=== PATIENT | female | born 1990 | race Caucasian/White ===

== ENCOUNTER 2023-07-11 06:50 | Day surgery (SDC) | payer MEDICAID ==
[~2023-07-11 06:50] MED LIST: Sodium Chloride 0.9% 10 ML Syringe FLUSH PRN
[2023-07-11] MEDS: Lactated Ringers 1,000 ML IV SCH (07:15)
[2023-07-11 07:17] LABS: BASOPHILS PERCENT AUTO 0.2 % (0.0-1.0); EOSINOPHILS ABSOLUTE AUTO 0.1 K/mm3 (0.0-0.4); EOSINOPHILS PERCENT AUTO 1.7 % (0.0-6.0); HEMOGLOBIN 12.8 gm/dl (12.0-16.0); IMMATURE GRAN ABSOLUTE AUTO 0.04 K/mm3 (0.00-0.05); IMMATURE GRAN PERCENT AUTO 0.6 % (0.0-0.4); LYMPHOCYTES PERCENT AUTO 29.8 % (24.0-44.0); MEAN CORPUSCULAR HGB CONC 34.6 g/dl (32.0-36.0); MEAN CORPUSCULAR VOLUME 89.6 fl (83.0-99.0); MEAN PLATELET VOLUME 11.1 fl (9.4-12.3); MONOCYTES ABSOLUTE AUTO 0.3 K/mm3 (0.0-0.8); MONOCYTES PERCENT AUTO 4.9 % (0.0-8.0); NEUTROPHILS ABSOLUTE AUTO 4.1 K/mm3 (1.8-7.7); NEUTROPHILS PERCENT AUTO 62.8 % (41.0-71.0); PLATELET COUNT,PLT 171 K/mm3 (150-400); RED BLOOD CELL COUNT 4.13 M/mm3 (4.10-5.30); WHITE BLOOD CELL COUNT,WBC 6.54 K/mm3 (3.9-11.3)
[2023-07-11] MEDS: Acetaminophen 325 MG Tab PO ONE ×2 (07:17→07:22)
[2023-07-11] MEDS ORDERED: Lidocaine 1% 5 ML VIAL ONE (07:17)
[2023-07-11] MEDS ORDERED: Propofol 200 MG/20 ML SDV ONE ×3 (07:17→07:30)
[2023-07-11] MEDS ORDERED: Ondansetron 4 MG/2 ML SDV ONE (07:17)
[2023-07-11] MEDS ORDERED: Dexamethasone 4 MG/ML 5 ML MDV ONE (07:17)
[2023-07-11] MEDS ORDERED: fentaNYL 100 MCG/2 ML SDV ONE (07:17)
[2023-07-11] MEDS ORDERED: Succinylcholine 200 MG/10 ML MDV ONE (07:17)
[2023-07-11] MEDS ORDERED: Ketamine 200 MG/20 ML MDV ONE (07:17)
[2023-07-11] MEDS ORDERED: Midazolam 1 MG/ML 2 ML SDV ONE (07:17)
[2023-07-11] MEDS: Scopalamine 1mg/3day Transdermal Patch TOP ONE (07:17)
[2023-07-11] MEDS ORDERED: Rocuronium 50 MG/5 ML Vial ONE ×2 (07:17→09:01)
[2023-07-11] MEDS: Gabapentin 300 MG Cap PO ONE ×2 (07:17→07:22)
[2023-07-11] MEDS ORDERED: Lidocaine 2% 5 ML SDV ONE (07:20)
[2023-07-11] MEDS ORDERED: Bupivacaine 0.25% 10 ML SDV ONE (07:33)
[2023-07-11 07:39] LABS: ANION GAP 15.7 (5-15); BUN/CREATININE RATIO 13.8 (14-18); CALCIUM 8.9 mg/dL (8.5-10.1); CREATININE 0.8 mg/dL (0.55-1.02); EST CRCL DRUG DOSING (CG) 84.26 mL/min; POTASSIUM,K 3.7 mEq/L (3.5-5.1)
[2023-07-11] MEDS ORDERED: ceFAZolin 2 GM Vial ONE (07:56)
[2023-07-11] MEDS: Bupivacaine 0.5% 30 ML SDV ONE (08:05)
[2023-07-11] MEDS: EPINEPHrine 1 MG/ML SDV ONE (08:05)
[2023-07-11] MEDS: Bupivacaine 0.25% 10 ML SDV ONE (08:05)
[2023-07-11] MEDS ORDERED: Phenylephrine 1% 10 MG/ML SDV ONE (08:18)
[2023-07-11] MEDS ORDERED: HYDROmorphone 0.5 MG/0.5 ML Syringe ONE (08:23)
[2023-07-11] MEDS ORDERED: HYDROmorphone 0.5 MG/0.5 ML Syringe IVPUSH PRN (08:23)
[2023-07-11] MEDS ORDERED: Neostigmine Methylsulfate 10 MG/10 ML MDV ONE (08:30)
[2023-07-11] MEDS ORDERED: Sugammadex Sodium 200 MG/2 ML VIAL IV ONE (08:37)
[2023-07-11] MEDS ORDERED: Ketorolac 30 MG/ML SDV ONE (08:37)
[2023-07-11] MEDS ORDERED: Acetaminophen/oxyCODONE 325-5 MG Tab PO PRN ×2 (10:01)
[2023-07-11] MEDS: fentaNYL 100 MCG/2 ML SDV IVPUSH PRN (10:21)
[2023-07-11] MEDS: Ondansetron 4 MG/2 ML SDV IVPUSH PRN (11:41)
[2023-07-11] MEDS: Sodium Chloride 0.9% 10 ML Syringe FLUSH SCH (12:53)
[2023-07-11] MEDS: Ketorolac 15 MG/ML SDV IVPUSH SCH (16:17)
[2023-07-11] MEDS: Ketorolac 30 MG/ML SDV IVPUSH SCH (16:37)
[2023-07-11] MEDS ORDERED: Prazosin 1 MG Cap PO SCH (21:00)
[2023-07-12 07:52] LABS: HEMATOCRIT 33.5 % (37.0-47.0); HEMOGLOBIN 11.3 gm/dl (12.0-16.0); MEAN CORPUSCULAR HGB CONC 33.7 g/dl (32.0-36.0); MEAN CORPUSCULAR VOLUME 91.8 fl (83.0-99.0); MEAN PLATELET VOLUME 11.7 fl (9.4-12.3); PLATELET COUNT,PLT 166 K/mm3 (150-400); RED BLOOD CELL COUNT 3.65 M/mm3 (4.10-5.30); WHITE BLOOD CELL COUNT,WBC 11.53 K/mm3 (3.9-11.3)
[2023-07-12 08:00] LABS: ANION GAP 13.8 (5-15); CALCIUM 8.5 mg/dL (8.5-10.1); CREATININE 0.8 mg/dL (0.55-1.02); EST CRCL DRUG DOSING (CG) 84.26 mL/min; POTASSIUM,K 3.8 mEq/L (3.5-5.1)
== END 2023-07-12 09:50 | disposition home or self-care (01) ==
LOC: JD.SDS 06:50 → JD.OB 12:50 → JD.SDS 07-12 09:50
PROVIDERS: ATTEND Obstetrics & Gynecology
DX: N80.03 Adenomyosis of the uterus (principal); N84.0 Polyp of corpus uteri; F32.A Depression, unspecified; F41.9 Anxiety disorder, unspecified; Z87.891 Personal history of nicotine dependence; Z79.899 Other long term (current) drug therapy
CPT/HCPCS: 36415; 51999; 58550; 80048; 85025; 85027; 86850; 86900; 86901; A9270; J0171; J0330; J0665; J0690; J1100; J1170; J1885; J2250; J2371; J2405; J2704; J2710; J3010; J3490; J7120; 00944